=== PATIENT | male | born 1995 | race Caucasian/White ===

== ENCOUNTER → 2016-06-09 | Outpatient (CLI) | payer BC ==
--- NOTE | 2016-06-09 12:47 | RADIOLOGY REPORT PS360 ---
HAND-RT 3 VIEWS ORDERING PHYSICIAN : UCHE PERLA MD PATIENT AGE: 20 years GENDER: Male INDICATION: FU FX TECHNIQUE: 3 views right hand COMPARISON: FINDINGS Progress Healing of the fracture at mid shaft fifth metacarpal this transverse fracture now has additional callus formation most evident along its radial/anterior aspect. The mild angulation appears stable since previous studies with the slight distraction most evident dorsal cortex, unchanged. The remaining fingers and osseous structures of right hand are unremarkable. IMPRESSION: - Progressive healing of the fracture midshaft, right fifth metacarpal. Stable position
== END ==
LOC: RAD 09:31
DX: M79.641 Pain in right hand (principal)